=== PATIENT | female | born 1995 | race Caucasian/White ===

== ENCOUNTER 2022-08-16 23:13 | Emergency (ER) | payer BC ==
[2022-08-17] MEDS ORDERED: Rabies Vaccine Human 2.5 UNITS VIAL IM ONE (00:15)
== END 2022-08-17 00:42 | disposition home or self-care (01) ==
LOC: CSHERS 23:13
DX: Z77.21 Contact with and (suspected) exposure to potentially hazardous body fluids (principal); Z23 Encounter for immunization
CPT/HCPCS: 90471; 90675

== ENCOUNTER → 2022-08-19 | Day surgery (SDC) | payer BC ==
[~2022-08-19] MED LIST: Rabies Vaccine Human 2.5 UNITS VIAL IM ONE
== END ==
LOC: CSHER/OP 21:28
PROVIDERS: ATTEND Emergency Medicine
DX: Z23 Encounter for immunization (principal)
CPT/HCPCS: 90675